=== PATIENT | male | born 1945 | race Caucasian/White ===

== ENCOUNTER 2016-11-16 20:31 | Emergency (ER) | payer OTHER ==
--- NOTE | 2016-11-16 21:15 | CPEKG ---
Heart Rate: 62 RR Interval: 968 P-R Interval: 164 QRSD Interval: 102 QT Interval: 456 QTC Interval: 463 P [place]: 48 QRS [place]: 44 T Wave [place]: 47 EKG Severity - BORDERLINE ECG - EKG Impression: SINUS RHYTHM Electronically Signed By: Gilmar Patrick 16-Nov-2016 23:53:20
[2016-11-16 21:26] LABS: % IMMATURE GRANULYOCYTES 0.4 % (0.0-1.1); ABSOLUTE IMMATURE GRANULOCYTES 0.03 10^3/uL (0.00-0.10); ADD DIFF? NO; ADD MORPH? NO; ADD SCAN? NO; ATYPICAL LYMPHOCYTE FLAG 0 (0-99); FRAGMENT RBC FLAG 0 (0-99); HEMATOCRIT 42.5 % (40.0-51.0); HEMOGLOBIN 15.1 g/dL (13.7-17.5); LEFT SHIFT FLG 0 (0-99); LIPEMIA HEMOLYSIS FLAG 90 (0-99); MEAN CELL HEMOGLOBIN 33.2 pg (27.9-34.1); MEAN CELL HEMOGLOBIN CONCENTR. 35.5 g/dL (32.4-36.7); MEAN CELL VOLUME 93.4 fL (81.5-99.8); PLATELET CLUMPS FLAG 0 (0-99); PLATELET COUNT 233 10^3/uL (150-400); RED BLOOD CELL COUNT 4.55 10^6/uL (4.40-6.38); RED CELL DISTRIBUTION WIDTH 13.2 % (11.5-15.2)
--- NOTE | 2016-11-16 21:35 | DX ---
PA and lateral chest. 11/16/2016. Clinical History: Dyspnea. Possible pneumonia. Comparison Study: None available. Findings: Patchy infiltrate in the lower lobes bilaterally is compatible with early bronchopneumonia. Heart size is normal. No pleural effusion.. Visualized osseous structures appear normal. Impression: Bilateral lower lobe bronchopneumonia.
[2016-11-16 21:48] LABS: ANION GAP 9 mEq/L (8-16); CALCIUM 9.6 mg/dL (8.5-10.4); CARBON DIOXIDE 24 mEq/l (22-31); CHLORIDE 107 mEq/L (97-110); CREATININE 0.7 mg/dL (0.7-1.3); GLOMERULAR FILTRATION RATE > 60; GLUCOSE 171 mg/dL (70-100); POTASSIUM 4.2 mEq/L (3.5-5.2); SODIUM 140 mEq/L (134-144)
[2016-11-16 21:56] LABS: TROPONIN I 0.018 ng/mL (0-0.034)
--- NOTE | 2016-11-16 22:05 | EDPHY ---
H & P Stated Complaint: difficulty sleeping, increased HR/BP, anxiety and SOB since Monday - Personal History Current Tetanus/Diphtheria Vaccine: Unsure Current Tetanus Diphtheria and Acellular Pertussis (TDAP): Unsure - Medical/Surgical History Hx Asthma: No Hx Chronic Respiratory Disease: No Hx Diabetes: No Hx Cardiac Disease: Yes Hx Renal Disease: No Hx Cirrhosis: No Hx Alcoholism: No Hx HIV/AIDS: No Hx Splenectomy or Spleen Trauma: No Other PMH: [place] with 3 stents, HTN, anxiety - Social History Smoking Status: Heavy smoker <Cl Abad - Last Filed: 11/16/16 22:04> Source: Patient Exam Limitations: No limitations - Family History Significant Family History: No pertinent family hx - Social History Smoking Status: Never smoked <Gilmar Patrick - Last Filed: 11/16/16 23:56> Time Seen by Provider: 11/16/16 21:04 HPI/ROS: CHIEF COMPLAINT: Insomnia, slight cough HISTORY OF PRESENT ILLNESS: The patient presents to the ED with a 5 day history of insomnia since arriving in [place]. The patient denies any chest pain. He has had a slight dry cough over the past several days. The patient has a remote history of myocardial infarction in September and is currently anticoagulated and on a anti-platelet therapy. The patient denies any exertional chest pain. The patient denies fever, the patient denies nausea or vomiting. The patient denies any complaints of acute pain. He dense to the ED secondary to insomnia. He does not report PND or orthopnea. REVIEW OF SYSTEMS: A comprehensive 10 point review of systems is otherwise negative aside from elements mentioned in the history of present illness. (Gilmar Patrick) - Medical/Surgical History PMH: Past medical history: Myocardial infarction, coronary artery disease, hypertension (Gilmar Patrick) - Physical Exam Exam: General Appearance: Alert, no distress Eyes: Pupils equal and round no pallor or injection ENT, Mouth: Mucous membranes moist Respiratory: There are no retractions, lungs are clear to auscultation Cardiovascular: Regular rate and rhythm Gastrointestinal: Abdomen is soft and nontender, no masses, bowel sounds normal Neurological: A&O, normal motor function, normal sensory exam, normal cranial nerves Skin: Warm and dry, no rashes Musculoskeletal: Neck is supple nontender Extremities: symmetrical, full range of motion (Gilmar Patrick) Constitutional: Initial Vital Signs Temperature (C) 36.6 C 11/16/16 20:42 Heart Rate 67 11/16/16 20:42 Respiratory Rate 18 11/16/16 20:42 Blood Pressure 178/87 H 11/16/16 20:42 O2 Sat (%) 94 11/16/16 20:42 O2 Delivery Mode Room Air Allergies/Adverse Reactions: codeine Allergy (Verified 11/16/16 20:41) Home Medications: Medication Instructions Recorded AZITHROMYCIN [Z-PACK] 500 mg PO DAILY #1 packet 11/16/16 Aspirin EC 81 mg (*) 11/16/16 Atorvastatin Calcium 11/16/16 Brilinta 11/16/16 LORAZEPAM 11/16/16 Lisinopril 11/16/16 Metoprolol Tartrate 11/16/16 Zolpidem Tartrate [Ambien 5MG (*)] 5 mg PO HS #5 tab 11/16/16 Medical Decision Making <Cl Abad - Last Filed: 11/16/16 22:04> <Gilmar Patrick - Last Filed: 11/16/16 23:56> - Diagnostics EKG Interpretation: EKG: Complete interpretation has been separately recorded in the [facility] archive. Summary impression: Sinus rhythm, no acute ischemic changes (Gilmar Patrick) Imaging: Chest x-ray PA lateral: Images reviewed by myself and discussed with radiologist, possible mild bibasilar infiltrate noted (Gilmar Patrick) ED Course/Re-evaluation: The patient presents to the ED for evaluation of insomnia. He has had no exertional chest pain or shortness of breath. His EKG and cardiac enzymes are within normal limits. The patient's chest x-ray demonstrates a mild infiltrate in the lung base. The patient will be started on azithromycin for possible early pneumonia. The patient will be given a prescription for Ambien for his insomnia. He is instructed to return to the ED for severe abdominal pain, chest pain, shortness of breath or other concerns. (Gilmar Patrick) Differential Diagnosis: Differential diagnosis considered includes pneumonia, arrhythmia, heart failure , insomnia (Gilmar Patrick) - Data Points Laboratory Results: Laboratory Results 11/16/16 21:17 11/16/16 21:17 11/16/16 21:17 WBC 7.93 10^3/uL (3.80-9.50) RBC 4.55 10^6/uL (4.40-6.38) Hgb 15.1 g/dL (13.7-17.5) Hct 42.5 % (40.0-51.0) MCV 93.4 fL (81.5-99.8) MCH 33.2 pg (27.9-34.1) MCHC 35.5 g/dL (32.4-36.7) RDW 13.2 % (11.5-15.2) Plt Count 233 10^3/uL (150-400) MPV 10.0 fL (8.7-11.7) Neut % (Auto) 47.6 % (39.3-74.2) Lymph % (Auto) 43.9 % (15.0-45.0) Adams % (Auto) 5.9 % (4.5-13.0) Eos % (Auto) 1.9 % (0.6-7.6) Baso % (Auto) 0.3 % (0.3-1.7) Nucleat RBC Rel Count 0.0 % (0.0-0.2) Absolute Neuts (auto) 3.78 10^3/uL (1.70-6.50) Absolute Lymphs (auto) 3.48 H 10^3/uL (1.00-3.00) Absolute Monos (auto) 0.47 10^3/uL (0.30-0.80) Absolute Eos (auto) 0.15 10^3/uL (0.03-0.40) Absolute Basos (auto) 0.02 10^3/uL (0.02-0.10) Absolute Nucleated RBC 0.00 10^3/uL (0-0.01) Immature Gran % 0.4 % (0.0-1.1) Immature Gran # 0.03 10^3/uL (0.00-0.10) D-Dimer < 0.27 ug/mLFEU (0.00-0.50) Sodium 140 mEq/L (134-144) Potassium 4.2 mEq/L (3.5-5.2) Chloride 107 mEq/L (97-110) Carbon Dioxide 24 mEq/l (22-31) Anion Gap 9 mEq/L (8-16) BUN 14 mg/dL (7-23) Creatinine 0.7 mg/dL (0.7-1.3) Estimated GFR > 60 Glucose 171 H mg/dL (70-100) Calcium 9.6 mg/dL (8.5-10.4) Troponin I 0.018 ng/mL (0-0.034) NT-Pro-B Natriuret Pep 198 H pg/mL (0-125) Departure <Cl Abad - Last Filed: 11/16/16 22:04> <Gilmar Patrick - Last Filed: 11/16/16 23:56> - Departure Disposition: Home, Routine, Self-Care Clinical Impression: Insomnia Qualifiers: Insomnia type: other insomnia Qualifier Code: (G47.09) Other insomnia Pneumonia Qualifiers: Pneumonia type: due to unspecified organism Laterality: unspecified laterality Lung location: unspecified part of lung Qualifier Code: (J18.9) Pneumonia, unspecified organism Condition: Good Instructions: Insomnia (ED), Pneumonia (ED) Additional Instructions: 1. Please take medications as prescribed. 2. Please return to the ED for any worsening symptoms or other concerns. 3. Please take antibiotics as prescribed for possible mild pneumonia. Referrals: Neal Killian MD [Primary Care Provider] - 1-2 days without fail Prescriptions: Zolpidem Tartrate [Ambien 5MG (*)] 5 mg PO HS #5 tab AZITHROMYCIN [Z-PACK] 500 mg PO DAILY #1 packet
[2016-11-16 22:35] VITALS: BP 134/74; PULSE 60; RESP 16; TEMP 97.7; O2SAT 96
== END 2016-11-16 22:35 | disposition home or self-care (01) ==
DX: G47.09 Other insomnia (principal); J18.9 Pneumonia, unspecified organism; I10 Essential (primary) hypertension; I25.2 Old myocardial infarction; F17.200 Nicotine dependence, unspecified, uncomplicated; Z95.5 Presence of coronary angioplasty implant and graft; Z79.82 Long term (current) use of aspirin

== ENCOUNTER 2016-11-30 22:00 | Emergency (ER) | payer OTHER ==
--- NOTE | 2016-11-30 22:15 | EDPHY ---
H & P Stated Complaint: SOB, upper abdominal pain x2+ days, bloating; cardiac stents 09/24 HPI/ROS: HPI CHIEF COMPLAINT: Shortness of breath x3 weeks, abdominal bloating, wheezing HISTORY OF PRESENT ILLNESS: The patient very pleasant 71-year-old male significant past medical history for coronary artery disease with 3 stents, recently moved [facility] from [place] 3 weeks ago. He presents emergency room this evening stating that he has worsening shortness of breath over the past 3 weeks with wheezing. He denies any chest pain, chest tightness , dull ache or pressure sensation. Denies numbness or tingling or weakness. Denies headache. Denies fever. He states he was seen here earlier in the month on 8 and diagnosed with pneumonia completed a course of antibiotics. He does smoke tobacco about a half pack per day. Presents emergency room tonight with abdominal bloating and lower abdominal discomfort, denies chest pain but endorses progressively worsening shortness of breath over the past 3 weeks. Fatigue. He states since he moved [place] he has been having worsening shortness of breath. He denies productive cough, denies fever, denies vomiting. He does tell me he took a laxative today and this helped with a bowel movement his belly felt a little bit better. He does not have any epigastric pain or discomfort. His abdominal discomfort is bloating in the lower abdomen. Past Medical History: Coronary artery disease with 3 stents, hypertension, hyperlipidemia, "borderline diabetes" Past Surgical History: PTCA x 3. Social History: Smokes tobacco daily, half a pack per day, denies daily use of alcohol or drugs Family History: Noncontributory ROS REVIEW OF SYSTEMS: A comprehensive 10 point review of systems is otherwise negative aside from elements mentioned in the history of present illness. Exam Constitutional appears well nontoxic, triage nursing summary reviewed, vital signs reviewed, awake/alert. Eyes normal conjunctivae and sclera, EOMI, PERRLA. HENT normal inspection, atraumatic, moist mucus membranes, no epistaxis, neck supple/ no meningismus, no raccoon eyes. Respiratory faint wheezing bilaterally, decreased breath sounds bilaterally, otherwise no rhonchi or crackles Cardiovascular rate normal, regular rhythm, no murmur, no edema, distal pulses normal. Gastrointestinal soft, non-tender, no rebound, no guarding, normal bowel sounds, no distension, no pulsatile mass. Genitourinary no CVA tenderness. Musculoskeletal no midline vertebral tenderness, full range of motion, no calf swelling, no tenderness of extremities, no meningismus, good pulses, neurovascularly intact. Skin pink, warm, & dry, no rash, skin atraumatic. Neurologic awake, alert and oriented x 3, AAOx3, moves all 4 extremities equally, motor intact, sensory intact, CN II-XII intact, normal cerebellar, normal vision, normal speech. Psychiatric normal mood/affect. Heme/Lymph/Immune no lymphadenopathy. Differential Diagnosis: Includes but is not limited to in a particular order pneumonia, CHF, COPD, wheezing, reactive airway disease, doubt acute coronary syndrome, constipation, colitis, diverticulitis, dehydration, diabetes Medical Decision Making: patient had an IV established will obtain blood work, patient had an x-ray of his chest to rule out focal pneumonia versus CHF, EKG, troponin, patient be gently hydrated with IV fluids, received DuoNeb breathing treatment and Ativan. Re-evaluation: EKG interpretation by me on record in [facility] system. Impression time of EKG is 2230: This shows sinus rhythm rate of 70, LVH present. Otherwise no acute ischemic changes specifically no ST elevation, ST depression or significant T-wave abnormalities. Normal intervals. EKG interpreted by myself. ED x-ray chest two View: Negative for acute cardiopulmonary disease. Image interpreted by myself. 2358: re-evaluation at this time patient is resting comfortably feels much better after DuoNeb breathing treatment. His lungs are clear is no further wheezing. He is not hypoxic. His blood work is reassuring. His CT scan abdomen pelvis with IV contrast is pending at this time. Most likely placed this patient on albuterol inhaler, prednisone and he should refrain from smoking. CT scan of the Abdomen pelvis with IV contrast. The results of the study are shows small bowel fluid-filled however no acute pulmonary process normal appendix, no diverticulitis, no colitis.. The study was read by Dr. Fowler I viewed the images myself on the PACS system. 1200: on re-examination at this time this patient is resting comfortably he appears well nontoxic good air movement, no hypoxia. Abdomen is soft nontender. Blood work has been reviewed, troponin, EKG, CT scan abdomen pelvis, x-ray. The wheezing has subsided after DuoNeb breathing treatment and IV Solu- Medrol. He does feel comfortable being discharged. He has no chest pain no shortness of breath at this time. He does understand return to the emergency room if develops any worsening symptoms includes shortness of breath, fever, productive cough further wheezing. He should use inhaler as prescribed prednisone 40 mg for the next 5 days return if any worsening symptoms. Source: Patient - Personal History Current Tetanus/Diphtheria Vaccine: Yes Current Tetanus Diphtheria and Acellular Pertussis (TDAP): Yes - Medical/Surgical History Hx Asthma: No Hx Chronic Respiratory Disease: No Hx Diabetes: No Hx Cardiac Disease: Yes Hx Renal Disease: No Hx Cirrhosis: No Hx Alcoholism: No Hx HIV/AIDS: No Hx Splenectomy or Spleen Trauma: No Other PMH: [place] with 3 stents, HTN, anxiety - Social History Smoking Status: Heavy smoker Constitutional: Initial Vital Signs Temperature (C) 36.4 C 11/30/16 22:04 Heart Rate 99 11/30/16 22:04 Respiratory Rate 16 11/30/16 22:04 Blood Pressure 145/83 H 11/30/16 22:04 O2 Sat (%) 93 11/30/16 22:04 O2 Delivery Mode Room Air Allergies/Adverse Reactions: codeine Allergy (Verified 11/16/16 20:41) Home Medications: Medication Instructions Recorded Aspirin EC 81 mg (*) 11/16/16 Atorvastatin Calcium 11/16/16 Brilinta 11/16/16 LORAZEPAM 11/16/16 Lisinopril 11/16/16 Metoprolol Tartrate 11/16/16 predniSONE 40 mg PO DAILY #10 tab 11/30/16 Albuterol [Proventil Inhaler HFA 1 - 2 puffs IH Q4H #1 mdi 12/01/16 (*)] Guaifenesin [Guaifenesin ER] 600 mg PO BID #14 tab.er.12h 12/01/16 Medical Decision Making - Data Points Laboratory Results: Laboratory Results 11/30/16 22:20 11/30/16 22:20 11/30/16 11/30/16 11/30/16 22:20 22:20 22:20 WBC 8.80 10^3/uL 10^3/uL (3.80-9.50) RBC 4.81 10^6/uL 10^6/uL (4.40-6.38) Hgb 15.5 g/dL g/dL (13.7-17.5) Hct 43.7 % % (40.0-51.0) MCV 90.9 fL fL (81.5-99.8) MCH 32.2 pg pg (27.9-34.1) MCHC 35.5 g/dL g/dL (32.4-36.7) RDW 13.4 % % (11.5-15.2) Plt Count 269 10^3/uL 10^3/uL (150-400) MPV 9.8 fL fL (8.7-11.7) Neut % (Auto) 43.8 % % (39.3-74.2) Lymph % (Auto) 46.6 % H % (15.0-45.0) [place] % (Auto) 6.8 % % (4.5-13.0) Eos % (Auto) 1.9 % % (0.6-7.6) Baso % (Auto) 0.6 % % (0.3-1.7) Nucleat RBC Rel Count 0.0 % % (0.0-0.2) Absolute Neuts (auto) 3.85 10^3/uL 10^3/uL (1.70-6.50) Absolute Lymphs (auto) 4.10 10^3/uL H 10^3/uL (1.00-3.00) Absolute Monos (auto) 0.60 10^3/uL 10^3/uL (0.30-0.80) Absolute Eos (auto) 0.17 10^3/uL 10^3/uL (0.03-0.40) Absolute Basos (auto) 0.05 10^3/uL 10^3/uL (0.02-0.10) Absolute Nucleated RBC 0.00 10^3/uL 10^3/uL (0-0.01) Immature Gran % 0.3 % % (0.0-1.1) Immature Gran # 0.03 10^3/uL 10^3/uL (0.00-0.10) PT 13.5 SEC SEC (12.0-15.0) INR 1.04 (0.83-1.16) APTT 28.1 SEC SEC (23.0-38.0) D-Dimer 0.32 ug/mLFEU ug/mLFEU (0.00-0.50) Sodium 139 mEq/L mEq/L (134-144) Potassium 4.4 mEq/L mEq/L (3.5-5.2) Chloride 103 mEq/L mEq/L (97-110) Carbon Dioxide 26 mEq/l mEq/l (22-31) Anion Gap 10 mEq/L mEq/L (8-16) BUN 20 mg/dL mg/dL (7-23) Creatinine 0.8 mg/dL mg/dL (0.7-1.3) Estimated GFR > 60 Glucose 138 mg/dL H mg/dL (70-100) Calcium 10.3 mg/dL mg/dL (8.5-10.4) Magnesium 2.1 mg/dL mg/dL (1.6-2.3) Total Bilirubin 0.9 mg/dL mg/dL (0.1-1.4) Conjugated Bilirubin 0.5 mg/dL mg/dL (0.0-0.5) Unconjugated Bilirubin 0.4 mg/dL mg/dL (0.0-1.1) AST 52 IU/L IU/L (17-59) ALT 63 IU/L IU/L (21-72) Alkaline Phosphatase 69 IU/L IU/L (38-126) Creatine Kinase 224 IU/L IU/L (0-224) CK-MB (CK-2) Fraction 5.63 ng/mL H ng/mL (0-3.19) CK-MB (CK-2) % 2.5 % % (0.0-4.0) Creatine Kinase Interp NEGATIVE (NEGATIVE) Troponin I < 0.012 ng/mL ng/mL (0-0.034) NT-Pro-B Natriuret Pep 116 pg/mL pg/mL (0-125) Total Protein 7.4 g/dL g/dL (6.3-8.2) Albumin 4.8 g/dL g/dL (3.5-5.0) Lipase 100.0 IU/L IU/L (23-300) Medications Given: Discontinued Medications Lorazepam (Ativan Injection) 0.5 mg IVP EDNOW ONE Stop: 11/30/16 22:28 Last Admin: 11/30/16 22:33 Dose: 0.5 mg Departure - Departure Disposition: Home, Routine, Self-Care Clinical Impression: Bronchitis Condition: Good Instructions: Acute Bronchitis (ED), Wheezing (ED), Bronchospasm (ED) Additional Instructions: 1. Drink lots of fluids. 2. Refrain from smoking. 3. Take her inhaler 2 puffs every 2-4 hours as needed for wheezing. 4. take your prednisone. 5. return emergency room if you have any worsening symptoms includes worsening shortness of breath, wheezing, fever vomiting or severe abdominal pain. Referrals: Neal Killian MD [Primary Care Provider] - As per Instructions Prescriptions: Albuterol [Proventil Inhaler HFA (*)] 1 - 2 puffs IH Q4H #1 mdi Guaifenesin [Guaifenesin ER] 600 mg PO BID #14 tab.er.12h predniSONE 40 mg PO DAILY #10 tab
[2016-11-30] MEDS ORDERED: NS 1,000 ML IV ONE (22:22)
[2016-11-30] MEDS ORDERED: IPRATROPIUM/ALBUTEROL 3 ML DEYVIAL IH ONE (22:27)
[2016-11-30] MEDS ORDERED: LORazepam 2 MG/ML INJ IVP ONE (22:27)
[2016-11-30] MEDS ORDERED: LORazepam 2 MG/ML INJ ONE (22:27)
[2016-11-30 22:29] LABS: % IMMATURE GRANULYOCYTES 0.3 % (0.0-1.1); ABSOLUTE IMMATURE GRANULOCYTES 0.03 10^3/uL (0.00-0.10); ADD DIFF? NO; ADD MORPH? NO; ADD SCAN? NO; ATYPICAL LYMPHOCYTE FLAG 10 (0-99); FRAGMENT RBC FLAG 0 (0-99); HEMATOCRIT 43.7 % (40.0-51.0); HEMOGLOBIN 15.5 g/dL (13.7-17.5); LEFT SHIFT FLG 0 (0-99); LIPEMIA HEMOLYSIS FLAG 90 (0-99); MEAN CELL HEMOGLOBIN 32.2 pg (27.9-34.1); MEAN CELL HEMOGLOBIN CONCENTR. 35.5 g/dL (32.4-36.7); MEAN CELL VOLUME 90.9 fL (81.5-99.8); MEAN PLATELET VOLUME 9.8 fL (8.7-11.7); PLATELET CLUMPS FLAG 0 (0-99); PLATELET COUNT 269 10^3/uL (150-400); RED BLOOD CELL COUNT 4.81 10^6/uL (4.40-6.38); RED CELL DISTRIBUTION WIDTH 13.4 % (11.5-15.2)
--- NOTE | 2016-11-30 22:33 | CPEKG ---
Heart Rate: 78 RR Interval: 769 P-R Interval: 176 QRSD Interval: 98 QT Interval: 392 QTC Interval: 447 P Vici: 62 QRS Vici: 57 T Wave Vici: 57 EKG Severity - ABNORMAL ECG - EKG Impression: SINUS RHYTHM EKG Impression: LEFT VENTRICULAR HYPERTROPHY Electronically Signed By: Jose Romero 01-Dec-2016 12:08:25
[2016-11-30 22:38] LABS: ALANINE AMINOTRANSFERASE 63 IU/L (21-72); ALBUMIN 4.8 g/dL (3.5-5.0); ALKALINE PHOSPHATASE 69 IU/L (38-126); ANION GAP 10 mEq/L (8-16); ASPARTATE AMINOTRANSFERASE 52 IU/L (17-59); BILIRUBIN,TOTAL 0.9 mg/dL (0.1-1.4); BILIRUBIN-CONJUGATED 0.5 mg/dL (0.0-0.5); BILIRUBIN-UNCONJUGATED 0.4 mg/dL (0.0-1.1); CALCIUM 10.3 mg/dL (8.5-10.4); CARBON DIOXIDE 26 mEq/l (22-31); CHLORIDE 103 mEq/L (97-110); CREATININE 0.8 mg/dL (0.7-1.3); GLOMERULAR FILTRATION RATE > 60; GLUCOSE 138 mg/dL (70-100); INR 1.04 (0.83-1.16); MAGNESIUM 2.1 mg/dL (1.6-2.3); POTASSIUM 4.4 mEq/L (3.5-5.2); PROTIME(PATIENT) 13.5 SEC (12.0-15.0); SODIUM 139 mEq/L (134-144); TOTAL PROTEIN 7.4 g/dL (6.3-8.2)
[2016-11-30 22:39] LABS: APTT 28.1 SEC (23.0-38.0)
[2016-11-30 22:49] LABS: TROPONIN I < 0.012 ng/mL (0-0.034)
[2016-11-30 23:08] LABS: CK-MB INTERPRETATION NEGATIVE (NEGATIVE); CREATINE KINASE-MB FRACTION 5.63 ng/mL (0-3.19)
[2016-11-30] MEDS ORDERED: methylPREDNISolone SOD SUCC 125 MG/2 ML VIAL IVP ONE (23:13)
[2016-11-30] MEDS ORDERED: IOPAMIDOL (ISOVUE-300) 100 ML BTL IV ONE (23:24)
[2016-12-01] MEDS ORDERED: IPRATROPIUM/ALBUTEROL 3 ML DEYVIAL ONE (00:28)
[2016-12-01] MEDS ORDERED: ALBUTEROL INH PREPACK MDI TAKEHOME ONE ×2 (00:28→00:43)
[2016-12-01] MEDS ORDERED: IPRATROPIUM/ALBUTEROL 3 ML DEYVIAL IH ONE (00:43)
[2016-12-01 00:45] VITALS: RESP 18; TEMP 98.2; O2SAT 92
[2016-12-01 01:08] VITALS: BP 140/70; PULSE 86
== END 2016-12-01 01:18 | disposition home or self-care (01) ==
DX: J40 Bronchitis, not specified as acute or chronic (principal); I10 Essential (primary) hypertension; I25.10 Atherosclerotic heart disease of native coronary artery without angina pectoris; F17.200 Nicotine dependence, unspecified, uncomplicated; I25.2 Old myocardial infarction; Z95.5 Presence of coronary angioplasty implant and graft; Z79.82 Long term (current) use of aspirin
CPT/HCPCS: 71020; 74177; 93005; 96361; 96374; 96375; 99285; Q9967

== ENCOUNTER 2019-02-16 10:12 | Emergency (ER) | payer OTHER ==
[2019-02-16] MEDS ORDERED: LORazepam 2 MG/ML INJ ONE (10:35)
[2019-02-16 10:37] LABS: PLATELET COUNT 265 10^3/uL (150-400)
[2019-02-16] MEDS ORDERED: NS 1,000 ML IV ONE (10:39)
[2019-02-16] MEDS ORDERED: LORazepam 2 MG/ML INJ IVP ONE (10:39)
--- NOTE | 2019-02-16 10:41 | EDPHY ---
H & P Stated Complaint: weakness dizzy nauseated Time Seen by Provider: 02/16/19 10:25 HPI/ROS: CHIEF COMPLAINT: Global weakness, nausea, resolved headache HISTORY OF PRESENT ILLNESS: The patient presents the emergency department with complaints of global weakness, nausea and resolved headache. The patient reports that his weakness is impeding his ability to ambulate. He denies any unilateral numbness or weakness. The patient did have a headache yesterday which resolved. The patient does take oral medications for diabetes and lisinopril for hypertension. He did not take his lisinopril earlier today. The patient denies any decrease in his typical alcohol consumption of 2 drinks a day. The patient denies any chest pain or difficulty breathing. The patient denies any dysuria, abdominal pain or infectious symptoms. REVIEW OF SYSTEMS: A comprehensive 10 point review of systems is otherwise negative aside from elements mentioned in the history of present illness. Source: Patient Exam Limitations: No limitations - Personal History Current Tetanus Diphtheria and Acellular Pertussis (TDAP): Yes - Medical/Surgical History Hx Asthma: No Hx Chronic Respiratory Disease: No Hx Diabetes: Yes Hx Cardiac Disease: Yes Hx Renal Disease: No Hx Cirrhosis: No Hx Alcoholism: No Hx HIV/AIDS: No Hx Splenectomy or Spleen Trauma: No Other PMH: [place] with 3 stents, HTN, anxiety - Social History Smoking Status: Former smoker - Physical Exam Exam: General Appearance: Alert, anxious, no acute distress Eyes: Pupils equal and round no pallor or injection ENT, Mouth: Mucous membranes moist Respiratory: There are no retractions, lungs are clear to auscultation Cardiovascular: Tachycardic, 2/6 systolic ejection murmur Gastrointestinal: Abdomen is soft and nontender, no masses, bowel sounds normal Neurological: A&O, normal motor function, normal sensory exam, normal cranial nerves Skin: Warm and dry, no rashes Musculoskeletal: Neck is supple nontender Extremities: symmetrical, full range of motion Constitutional: Initial Vital Signs Temperature (C) 36.8 C 02/16/19 10:17 Heart Rate 138 H 02/16/19 10:17 Respiratory Rate 18 02/16/19 10:17 Blood Pressure 206/127 H 02/16/19 10:17 O2 Sat (%) 94 02/16/19 10:17 O2 Delivery Mode Room Air Allergies/Adverse Reactions: codeine Allergy (Verified 05/11/19 10:14) Home Medications: Medication Instructions Recorded Atorvastatin Calcium 11/16/16 LORAZEPAM 11/16/16 Lisinopril 11/16/16 Metoprolol Tartrate 11/16/16 Albuterol [Proventil Inhaler HFA 1 - 2 puffs IH Q4H #1 mdi 12/01/16 (*)] Ondansetron Odt [Zofran Odt] 4 mg PO Q4PRN PRN #20 tab 02/16/19 Trulicity 02/16/19 Medical Decision Making - Diagnostics EKG Interpretation: EKG: Complete interpretation has been separately recorded in the [facility] archive. Summary impression: Sinus tachycardia, rate 135 Imaging Results: Imaging Impressions Head CT 02/16/19 10:31 Impression: 1. No evidence for acute intracranial abnormality. 2. Mild periventricular and deep hemispheric white matter change that can be seen with small vessel ischemic disease. 3. Mild generalized cerebral atrophy. Results called and discussed with Gilmar Patrick MD on February 16, 2019 at 1113 hours. ED Course/Re-evaluation: Patient presents to the ED after vomiting all night and having generalized weakness and fatigue today. The patient did have a headache yesterday. He was noted to be quite hypertensive upon arrival. Given his complaints of acute headache and diffuse weakness he was taken for a stat noncontrast CT scan of the head which fortunately demonstrates no evidence of an intracranial hemorrhage. The patient was treated with lisinopril and metoprolol in the emergency department which he typically takes each morning. The patient was also given a mg of Ativan. Screening laboratory studies were sent and found to be unremarkable. The patient's initial troponin is also found to be normal. Re-evaluation at 12:00 p.m.: Patient is ambulatory and feeling better. He still has ongoing hypertension and tachycardia but has not yet received his dose of metoprolol. The patient's neurologic examination remains normal. He continues to have no complaints of acute pain or difficulty breathing. Re-evaluated the patient at 1:15 p.m.: Blood pressure now 150/70. Heart rate 90. Patient is feeling much better. At this point time I do feel he can be discharged home. I have told him that he should follow up with his primary care provider for a blood pressure recheck in the week. The patient should return to the ED for any chest pain, shortness of breath, recurrent symptoms or other concerns. The patient recently moved back to [place] and is interested reestablishing care with his previous PCP Dr. Killian. He will contact his office on Monday to schedule a follow-up visit. Differential Diagnosis: Differential diagnosis considered includes intracranial hemorrhage, acute coronary syndrome, hypertensive emergency, metabolic derangement, stroke, TIA - Data Points Laboratory Results: Laboratory Results 02/16/19 10:25 02/16/19 10:25 02/16/19 02/16/19 02/16/19 10:32 10:25 10:25 WBC RBC Hgb Hct MCV MCH MCHC RDW Plt Count MPV Neut % (Auto) Lymph % (Auto) [place] % (Auto) Eos % (Auto) Baso % (Auto) Nucleat RBC Rel Count Absolute Neuts (auto) Absolute Lymphs (auto) Absolute Monos (auto) Absolute Eos (auto) Absolute Basos (auto) Absolute Nucleated RBC Immature Gran % Immature Gran # PT 13.1 SEC SEC (12.0-15.0) INR 1.03 (0.83-1.16) APTT 28.6 SEC SEC (23.0-38.0) Sodium 135 mEq/L mEq/L (135-145) Potassium 5.0 mEq/L mEq/L (3.5-5.2) Chloride 100 mEq/L mEq/L (97-110) Carbon Dioxide 21 mEq/l L mEq/l (22-31) Anion Gap 14 mEq/L mEq/L (6-14) BUN 21 mg/dL mg/dL (7-23) Creatinine 0.7 mg/dL mg/dL (0.7-1.3) Estimated GFR > 60 Glucose 203 mg/dL H mg/dL (70-100) Calcium 10.0 mg/dL mg/dL (8.5-10.4) POC Troponin I 0.01 ng/mL ng/mL (0.00-0.08) 02/16/19 10:25 WBC 7.74 10^3/uL 10^3/uL (3.80-9.50) RBC 4.81 10^6/uL 10^6/uL (4.40-6.38) Hgb 15.5 g/dL g/dL (13.7-17.5) Hct 44.3 % % (40.0-51.0) MCV 92.1 fL fL (81.5-99.8) MCH 32.2 pg pg (27.9-34.1) MCHC 35.0 g/dL g/dL (32.4-36.7) RDW 13.7 % % (11.5-15.2) Plt Count 265 10^3/uL 10^3/uL (150-400) MPV 9.2 fL fL (8.7-11.7) Neut % (Auto) 69.0 % % (39.3-74.2) Lymph % (Auto) 23.8 % % (15.0-45.0) [place]y % (Auto) 5.9 % % (4.5-13.0) Eos % (Auto) 0.4 % L % (0.6-7.6) Baso % (Auto) 0.6 % % (0.3-1.7) Nucleat RBC Rel Count 0.0 % % (0.0-0.2) Absolute Neuts (auto) 5.34 10^3/uL 10^3/uL (1.70-6.50) Absolute Lymphs (auto) 1.84 10^3/uL 10^3/uL (1.00-3.00) Absolute Monos (auto) 0.46 10^3/uL 10^3/uL (0.30-0.80) Absolute Eos (auto) 0.03 10^3/uL 10^3/uL (0.03-0.40) Absolute Basos (auto) 0.05 10^3/uL 10^3/uL (0.02-0.10) Absolute Nucleated RBC 0.00 10^3/uL 10^3/uL (0-0.01) Immature Gran % 0.3 % % (0.0-1.1) Immature Gran # 0.02 10^3/uL 10^3/uL (0.00-0.10) PT INR APTT Sodium Potassium Chloride Carbon Dioxide Anion Gap BUN Creatinine Estimated GFR Glucose Calcium POC Troponin I Medications Given: Discontinued Medications Sodium Chloride (Ns) 1,000 mls @ 0 mls/hr IV ONCE ONE PRN Reason: Wide Open Stop: 02/16/19 10:40 Last Admin: 02/16/19 10:41 Dose: 1,000 mls Lisinopril (Zestril) 40 mg PO EDNOW ONE Stop: 02/16/19 11:48 Last Admin: 02/16/19 11:55 Dose: 40 mg Lorazepam (Ativan Injection) 1 mg IVP EDNOW ONE Stop: 02/16/19 10:40 Last Admin: 02/16/19 10:40 Dose: 1 mg Metoprolol Tartrate (Lopressor) 50 mg PO EDNOW ONE Stop: 02/16/19 12:28 Last Admin: 02/16/19 12:34 Dose: 50 mg Point of Care Test Results: Chemistry 02/16/19 10:32 POC Troponin I 0.01 ng/mL ng/mL (0.00-0.08) Departure - Departure Disposition: Home, Routine, Self-Care Clinical Impression: Vomiting, Hypertension Condition: Good Instructions: Acute Nausea and Vomiting (ED) Additional Instructions: 1. Please schedule a follow-up appointment with your primary care provider for a blood pressure recheck in the week. 2. Return to the ED for any recurrent symptoms, chest pain, difficulty breathing or other concerns. 3. Please take your regular blood pressure medications as prescribed. 4. Zofran as needed for nausea. Referrals: Neal Killian MD [Medical Doctor] - As per Instructions Prescriptions: Ondansetron Odt [Zofran Odt] 4 mg PO Q4PRN PRN #20 tab PRN Reason: For Nausea
--- NOTE | 2019-02-16 10:44 | CPEKG ---
Test Reason : OPEN Blood Pressure : / mmHG Vent. Rate : 135 BPM Atrial Rate : 135 BPM P-R Int : 144 ms QRS Dur : 091 ms QT Int : 293 ms P-R-T Axes : 056 033 041 degrees QTc Int : 440 ms Sinus tachycardia Confirmed by Gilmar Patrick ([id number]) on 02/16/2019 10:43:41 AM Referred By: Gilmar Patrick Confirmed By:Gilmar Patrick
[2019-02-16 10:45] LABS: INR 1.03 (0.83-1.16); PROTIME(PATIENT) 13.1 SEC (12.0-15.0)
[2019-02-16] MEDS ORDERED: LISINOPRIL 20 MG TAB PO ONE (11:47)
[2019-02-16] MEDS ORDERED: METOPROLOL TARTRATE 50 MG TAB PO ONE (12:27)
[2019-02-16 13:16] VITALS: BP 139/80
== END 2019-02-16 13:28 | disposition home or self-care (01) ==
DX: R11.2 Nausea with vomiting, unspecified (principal); I10 Essential (primary) hypertension; E86.9 Volume depletion, unspecified; E11.9 Type 2 diabetes mellitus without complications; I25.2 Old myocardial infarction; Z95.5 Presence of coronary angioplasty implant and graft
CPT/HCPCS: 70450; 93005; 96361; 96374; 99285; J2060; 84484-ER

== ENCOUNTER 2019-03-04 01:49 | Emergency (ER) | payer OTHER ==
--- NOTE | 2019-03-04 02:05 | EDPHY ---
H & P Stated Complaint: Trouble swallowing , Time Seen by Provider: 03/04/19 02:05 HPI/ROS: HPI CHIEF COMPLAINT: Trouble swallowing. HISTORY OF PRESENT ILLNESS: 74-year-old male history of hypertension, diabetes , non-insulin dependent, presents emergency room with trouble swallowing. The patient reports that he took his nightly medications around 9:30 p.m.. He then went to sleep. He woke up around 1:00 a.m. Feeling like as 1 of his pills got stuck in his throat. He denies any trouble breathing or trouble swallowing. He states it has since gotten much better. No fever. No cough no vomiting. No stridor. He states he got somewhat better while waiting in the waiting room that he decided he was going to go home. However decided to get checked out anyway. Does complain of some mild posterior pharynx irritation. No fever. No trismus , no change in phonation. Past Medical History: Hypertension, diabetes. Past Surgical History: No recent surgery. Social History: Denies drugs alcohol tobacco. Family History: Noncontributory ROS REVIEW OF SYSTEMS: 10 Systems were reviewed and negative with the exception of the elements mentioned in the history of present illness. Exam Constitutional triage nursing summary reviewed, vital signs reviewed, awake/ alert. Eyes normal conjunctivae and sclera, EOMI, PERRLA. HENT posterior pharynx unremarkable, no significant swelling, uvula midline, no signs of [employer] RPA, normal inspection, atraumatic, moist mucus membranes, no epistaxis, neck supple/ no meningismus, no raccoon eyes. Respiratory no stridor, clear to auscultation bilaterally, normal breath sounds , no respiratory distress, no wheezing. Cardiovascular rate normal, regular rhythm, no murmur, no edema, distal pulses normal. Gastrointestinal soft, non-tender, no rebound, no guarding, normal bowel sounds, no distension, no pulsatile mass. Genitourinary no CVA tenderness. Musculoskeletal no midline vertebral tenderness, full range of motion, no calf swelling, no tenderness of extremities, no meningismus, good pulses, neurovascularly intact. Skin pink, warm, & dry, no rash, skin atraumatic. Neurologic awake, alert and oriented x 3, AAOx3, moves all 4 extremities equally, motor intact, sensory intact, CN II-XII intact, normal cerebellar, normal vision, normal speech. Psychiatric normal mood/affect. Heme/Lymph/Immune no lymphadenopathy. Differential Diagnosis: Includes but is not limited to in a particular order epiglottitis, foreign body, RPA, tracheitis, posterior pharynx irritation from pills, GERD, allergic reaction, angioedema, Medical Decision Making: Plan for this patient IV establishment basic blood work, CT soft tissue neck with IV contrast. Re-evaluation: CT neck with IV contrast soft tissue This was faxed me by direct [facility] at time 3:57 a.m. No acute abnormality there are 2 pulmonary nodules the right upper low and carotid artery calcifications noted. 0630: Patient re-evaluated this time resting comfortably in no acute distress. He is able swallow appropriately breathe appropriately denies any chest pain or shortness of breath. He states the foreign body sensation in his posterior pharynx is completely resolved. Labs reviewed. A CT scan of the neck with IV contrast for soft tissue is unremarkable I have discussed this with him. Additionally did show pulmonary nodules. He understands have this followed up with his primary care doctor. Additionally was noted that he was hypertensive here in emergency room. I encouraged him to keep a close eye on his blood pressure in follow-up with his primary care doctor. He has no chest pain or shortness of breath, denies any headache. Denies any significant neck pain. No trouble swallowing, no trouble breathing. The patient ambulated well throughout the emergency room. We discussed return precautions return emergency room if worsening symptoms includes trouble breathing, trouble swallowing, not doing well. Source: Patient - Personal History Current Tetanus Diphtheria and Acellular Pertussis (TDAP): Yes Tetanus Vaccine Date: 2017 - Medical/Surgical History Hx Asthma: No Hx Chronic Respiratory Disease: No Hx Diabetes: Yes Hx Cardiac Disease: Yes Hx Renal Disease: No Hx Cirrhosis: No Hx Alcoholism: No Hx HIV/AIDS: No Hx Splenectomy or Spleen Trauma: No Other PMH: [place] with 3 stents, HTN, anxiety, fractured ankle - Social History Smoking Status: Former smoker Constitutional: Initial Vital Signs Temperature (C) 36.8 C 03/04/19 01:51 Heart Rate 71 03/04/19 01:51 Respiratory Rate 17 03/04/19 01:51 Blood Pressure 191/94 H 03/04/19 01:51 O2 Sat (%) 95 03/04/19 01:51 O2 Delivery Mode Room Air Allergies/Adverse Reactions: codeine Allergy (Verified 03/04/19 01:50) Home Medications: Medication Instructions Recorded Atorvastatin Calcium 11/16/16 LORAZEPAM 11/16/16 Lisinopril 11/16/16 Metoprolol Tartrate 11/16/16 Albuterol [Proventil Inhaler HFA 1 - 2 puffs IH Q4H #1 mdi 12/01/16 (*)] Ondansetron Odt [Zofran Odt] 4 mg PO Q4PRN PRN #20 tab 02/16/19 Trulicity 02/16/19 Medical Decision Making - Data Points Laboratory Results: Laboratory Results 03/04/19 02:28 03/04/19 02:28 03/04/19 03/04/19 03/04/19 02:28 02:28 02:28 WBC 6.76 10^3/uL 10^3/uL (3.80-9.50) RBC 4.52 10^6/uL 10^6/uL (4.40-6.38) Hgb 14.6 g/dL g/dL (13.7-17.5) Hct 43.3 % % (40.0-51.0) MCV 95.8 fL fL (81.5-99.8) MCH 32.3 pg pg (27.9-34.1) MCHC 33.7 g/dL g/dL (32.4-36.7) RDW 14.3 % % (11.5-15.2) Plt Count 223 10^3/uL 10^3/uL (150-400) MPV 9.5 fL fL (8.7-11.7) Neut % (Auto) 46.1 % % (39.3-74.2) Lymph % (Auto) 42.9 % % (15.0-45.0) [place] % (Auto) 8.1 % % (4.5-13.0) Eos % (Auto) 1.9 % % (0.6-7.6) Baso % (Auto) 0.6 % % (0.3-1.7) Nucleat RBC Rel Count 0.0 % % (0.0-0.2) Absolute Neuts (auto) 3.11 10^3/uL 10^3/uL (1.70-6.50) Absolute Lymphs (auto) 2.90 10^3/uL 10^3/uL (1.00-3.00) Absolute Monos (auto) 0.55 10^3/uL 10^3/uL (0.30-0.80) Absolute Eos (auto) 0.13 10^3/uL 10^3/uL (0.03-0.40) Absolute Basos (auto) 0.04 10^3/uL 10^3/uL (0.02-0.10) Absolute Nucleated RBC 0.00 10^3/uL 10^3/uL (0-0.01) Immature Gran % 0.4 % % (0.0-1.1) Immature Gran # 0.03 10^3/uL 10^3/uL (0.00-0.10) PT 13.0 SEC SEC (12.0-15.0) INR 1.02 (0.83-1.16) APTT 28.6 SEC SEC (23.0-38.0) Sodium 138 mEq/L mEq/L (135-145) Potassium 4.4 mEq/L mEq/L (3.5-5.2) Chloride 105 mEq/L mEq/L (97-110) Carbon Dioxide 22 mEq/l mEq/l (22-31) Anion Gap 11 mEq/L mEq/L (6-14) BUN 21 mg/dL mg/dL (7-23) Creatinine 0.8 mg/dL mg/dL (0.7-1.3) Estimated GFR > 60 Glucose 174 mg/dL H mg/dL (70-100) Calcium 9.4 mg/dL mg/dL (8.5-10.4) Medications Given: Discontinued Medications Dexamethasone (Decadron Injection) 10 mg IVP EDNOW ONE Stop: 03/04/19 02:12 Last Admin: 03/04/19 02:32 Dose: 10 mg Diphenhydramine HCl (Benadryl Injection) 25 mg IVP EDNOW ONE Stop: 03/04/19 02:12 Last Admin: 03/04/19 02:33 Dose: 25 mg Sodium Chloride (Ns) 1,000 mls @ 0 mls/hr IV EDNOW ONE; Wide Open PRN Reason: Protocol Stop: 03/04/19 02:10 Last Admin: 03/04/19 02:27 Dose: 1,000 mls Famotidine 20 mg/ Sodium (Chloride) 102 mls @ 408 mls/hr IV EDNOW ONE Stop: 03/04/19 02:25 Last Admin: 03/04/19 02:32 Dose: 102 mls Departure - Departure Disposition: Home, Routine, Self-Care Clinical Impression: Pulmonary nodule, Throat pain, Hypertension Condition: Good Instructions: Allergies (ED), Pulmonary Nodules (ED), Hypertension (ED) Additional Instructions: 1. Return to the emergency room if develops worsening symptoms 2. Follow up with your primary care doctor 3. Your CT scan of the neck showed pulmonary nodules please have these followed up with you're primary care doctor. 4. Blood pressure noted to be high in emergency room keep a close eye on this. Follow up with your primary care doctor. Referrals: Neal Killian MD [Primary Care Provider] - As per Instructions
[2019-03-04] MEDS ORDERED: NS 1,000 ML IV ONE (02:09)
[2019-03-04] MEDS ORDERED: FAMOTIDINE 20 MG in NS 100 ML IV ONE (02:11)
[2019-03-04] MEDS ORDERED: DEXAMETHASONE 10 MG/ML VIAL IVP ONE (02:11)
[2019-03-04 02:41] LABS: PLATELET COUNT 223 10^3/uL (150-400)
[2019-03-04] MEDS ORDERED: IOPAMIDOL (ISOVUE-300) 100 ML BTL ONE (02:52)
[2019-03-04 03:03] LABS: INR 1.02 (0.83-1.16)
[2019-03-04 06:11] VITALS: BP 184/93
== END 2019-03-04 06:56 | disposition home or self-care (01) ==
DX: R07.0 Pain in throat (principal); R91.8 Other nonspecific abnormal finding of lung field; I10 Essential (primary) hypertension; E11.9 Type 2 diabetes mellitus without complications; F41.9 Anxiety disorder, unspecified; I25.2 Old myocardial infarction; Z95.5 Presence of coronary angioplasty implant and graft; Z79.84 Long term (current) use of oral hypoglycemic drugs; Z87.891 Personal history of nicotine dependence
CPT/HCPCS: 70491; 96361; 96374; 96375; 99285; J1100; J1200; Q9967

== ENCOUNTER 2019-03-10 04:21 | Emergency (ER) | payer OTHER | END 2019-03-10 06:27 | disposition home or self-care (01) ==

== ENCOUNTER 2019-03-15 01:30 | Emergency (ER) | payer OTHER | END 2019-03-15 03:36 | disposition home or self-care (01) ==

== ENCOUNTER 2019-04-03 05:40 | Emergency (ER) | payer OTHER | END 2019-04-03 06:28 | disposition home or self-care (01) ==